=== PATIENT | male | born 1990 | race African-American/Black ===

== ENCOUNTER 2018-03-25 07:31 | Emergency (ER) | payer BC, OTHER ==
[2018-03-25 07:52] VITALS: BP 147/85; PULSE 99; TEMP 98; BMI 20.3
[2018-03-25] MEDS ORDERED: DIPHTH,PERTUSS(ACELL),TET 0.5 ML DISP.SYRIN IM ONE ×2 (09:06→09:34)
--- NOTE | 2018-03-25 09:09 | PDOC ---
History of Present Illness - General Chief Complaint: Injury Stated Complaint: HAND LACERATION Time Seen by Provider: 03/25/18 08:34 History Source: Patient Exam Limitations: No Limitations - History of Present Illness Initial Comments: 03/25/18 09:04 Patient states cut right wrist last night after punching window. States incident occurred approximately 9 hours ago. States wrapped red around wrist and went to sleep. Went to work this morning and noted had continued bleeding therefore came for evaluation. Denies numbness or tingling to fingers, no other injury. Past History - Travel Traveled outside of the country in the last 30 days: No Close contact w/someone who was outside of country & ill: No - Past Medical History Allergies/Adverse Reactions: Allergies Allergy/AdvReac Type Severity Reaction Status Date / Time No Known Allergies Allergy Verified 03/25/18 07:41 Home Medications: Ambulatory Orders NK [No Known Home Medication] 03/25/18 COPD: No - Immunization History Immunization Up to Date: No - Suicide/Smoking/Psychosocial Hx Smoking History: Current every day smoker Number of Cigarettes Smoked Daily: 10 Information on smoking cessation initiated: No Review of Systems - Review of Systems Able to Perform ROS?: Yes Is the patient limited Thai proficient: Yes Constitutional: Yes: Symptoms Reported, See HPI, Malaise Respiratory: No: Symptoms reported Integumentary: Yes: Symptoms Reported Neurological: Yes: Symptoms reported All Other Systems: Reviewed and Negative *Physical Exam - Vital Signs Last Vital Signs Temp Pulse Resp BP Pulse Ox 98 F 99 H 18 147/85 99 03/25/18 07:32 03/25/18 07:32 03/25/18 07:32 03/25/18 07:32 03/25/18 07:32 - Physical Exam General Appearance: Yes: Nourished, Appropriately Dressed, Mild Distress HEENT: positive: WOODY, Normal ENT Inspection, Normal Voice, TMs Normal, Pharynx Normal Neck: negative: Tender Musculoskeletal: positive: Normal Inspection Extremity: positive: Normal Capillary Refill, Normal Range of Motion (strong flexion and extension against resistance to all digits, neurovascular intact including ulnar medial and radial aspect of fingertips.). negative: Normal Inspection Integumentary: positive: Normal Color Neurologic: positive: lobby attendant II-XII NML intact, Fully Oriented, Alert, Normal Mood/ Affect, Normal Response, Motor Strength 5/5 Moderate Sedation - Procedure Monitoring Vital Signs: Procedure Monitoring Vital Signs Temperature 98 F 03/25/18 07:32 Pulse Rate 99 H 03/25/18 07:32 Respiratory Rate 18 03/25/18 07:32 Blood Pressure 147/85 03/25/18 07:32 O2 Sat by Pulse Oximetry (%) 99 03/25/18 07:32 Procedures - Laceration/Wound Repair Right Arm Wound Length: to 2.5 cm Wound Explored: clean Wound's Depth, Shape: into muscle Irrigated w/ Saline: Yes Betadine Prep: Yes Anesthesia: 1% Lidocaine Wound Repaired With: Sutures Suture Size/Type: 4:0 Number of Sutures: 7 (verticle mattress) Deep Layer Suture Size/Type: 4:0 Sterile Dressing Applied: Yes (ortho glass ) Sling Applied: Yes Progress Note - Progress Note Progress Note: right wrist laceration with arterial bleeding , repaired . Splint applied *DC/Admit/Observation/Transfer Diagnosis at time of Disposition: Laceration of wrist Qualifiers: Encounter type: initial encounter Laterality: right Qualified Code(s): S61.511A - Laceration without foreign body of right wrist, initial encounter - Discharge Dispostion Disposition: HOME Condition at time of disposition: Stable Decision to Admit order: No - Referrals - Patient Instructions Printed Discharge Instructions: DI for Laceration Repair Additional Instructions: Rest, elevate, avoid strenuous activity or heavy lifting until sutures are removed Leave dressing on for the next 24 hours, Then may remove dressing gently and wash area with soap and water. Use Splint for 1 week. Reapply bacitracin ointment and dressing daily for the next 5 days On day #6 keep the wound protected and cover as needed until sutures are removed allowing wound to start to dry May use Tylenol or Motrin for pain relief Your Tetanus / Pertussis/ Diptheria Booster updated today Suture removal in :12-14 Days - Apr 05 ask for Ivonne - Post Discharge Activity Forms/Work/School Notes: Back to Work
== END 2018-03-25 09:16 | disposition home or self-care (01) ==
LOC: JER 07:31 → JERFT 07:31
PROC: 0JQG0ZZ Repair Right Lower Arm Subcutaneous Tissue and Fascia, Open Approach (ICD-10-PCS; principal; 2018-03-25)
PROC: 3E0234Z Introduction of Serum, Toxoid and Vaccine into Muscle, Percutaneous Approach (ICD-10-PCS; 2018-03-25)
DX: S61.511A Laceration without foreign body of right wrist, initial encounter (principal); W25.XXXA Contact with sharp glass, initial encounter; Y93.89 Activity, other specified; Y92.89 Other specified places as the place of occurrence of the external cause; Y99.8 Other external cause status
CPT/HCPCS: 12031; 90471; 90715; 99281-25

== ENCOUNTER 2018-11-06 09:24 | Emergency (ER) | payer BC ==
[2018-11-06 09:52] VITALS: BP 122/57; PULSE 78; TEMP 98.3; BMI 19.5
--- NOTE | 2018-11-06 11:46 | PDOC ---
History of Present Illness - General Chief Complaint: Injury Stated Complaint: RT HAND INJURY Time Seen by Provider: 11/06/18 10:51 History Source: Patient Exam Limitations: No Limitations - History of Present Illness Initial Comments: 11/06/18 11:59 28 year old male with no significant medical or surgical history presents with injury to right thumb since yesterday. Patient reports slicing hand while opening a can last night at 9pm. Complaining of pain at site, Tetanus up to date laceration repair this year. Occurred: reports: yesterday Severity: reports: mild Upper Extremity Pain Location: right: thumb Method of Injury: reports: other (cut by a knife) Modifying Factors: improves with: immobilization Extremity Pain Location - Extremity Pain Location Extremity Pain Locations: right: thumb Past History - Travel Traveled outside of the country in the last 30 days: No Close contact w/someone who was outside of country & ill: No - Past Medical History Allergies/Adverse Reactions: Allergies Allergy/AdvReac Type Severity Reaction Status Date / Time No Known Allergies Allergy Verified 11/06/18 09:52 Home Medications: Ambulatory Orders Cephalexin [Keflex] 500 mg PO BID #14 capsule 11/06/18 Ibuprofen 600 mg PO TID #21 tablet 11/06/18 COPD: No - Immunization History Immunization Up to Date: No - Suicide/Smoking/Psychosocial Hx Smoking History: Never smoked Number of Cigarettes Smoked Daily: 10 Information on smoking cessation initiated: No Hx Alcohol Use: No Drug/Substance Use Hx: No Review of Systems - Review of Systems Able to Perform ROS?: Yes Is the patient limited Chinese proficient: No Constitutional: No: Chills, Diaphoresis, Fever HEENTM: No: Double Vision, Nose Congestion, Throat Pain, Throat Swelling Respiratory: No: Cough Cardiac (ROS): No: Chest Pain ABD/GI: No: Abdominal Distended, Nausea, Poor Appetite, Vomiting, Indigestion : No: Burning Musculoskeletal: Yes: Other (+laceration in web of 1st and 2nd digit ). No: Joint Pain, Muscle Pain Integumentary: No: Change in Color, Flushing Neurological: No: Numbness, Tingling Psychiatric: No: Stressors *Physical Exam - Vital Signs Last Vital Signs Temp Pulse Resp BP Pulse Ox 98.3 F 78 18 122/57 L 96 11/06/18 09:51 11/06/18 09:51 11/06/18 09:51 11/06/18 09:51 11/06/18 09:51 - Physical Exam General Appearance: Yes: Nourished, Appropriately Dressed HEENT: positive: TMs Normal, Pharynx Normal Neck: positive: Supple. negative: Lymphadenopathy (R), Lymphadenopathy (L) Respiratory/Chest: positive: Lungs Clear Cardiovascular: positive: Regular Rhythm, Regular Rate Extremity: positive: Normal Inspection, Normal Range of Motion, Other (right hand with laceration in web of 1st and 2nd digit, bleeding) Neurologic: positive: Fully Oriented, Alert, Normal Response Procedures - Laceration/Wound Repair Right Hand 1st digit Wound Length: 2.6 to 5.0 cm Wound Explored: clean Wound's Depth, Shape: irregular Irrigated w/ Saline: Yes Betadine Prep: Yes Anesthesia: 2% Lidocaine Amount of Anesthetic (ccs): 10 Wound Debrided: minimal Wound Repaired With: Sutures Suture Size/Type: 4:0 Number of Sutures: 7 Layer Closure: No Sterile Dressing Applied: Yes Splint Applied: No Sling Applied: No Medical Decision Making - Medical Decision Making 11/06/18 12:05 28 year old male with no significant medical or surgical history presents with injury to right thumb since yesterday. Patient reports slicing hand while opening a can last night at 9pm. laceration of right hand -laceration repair -analgesia -d/c home *DC/Admit/Observation/Transfer Diagnosis at time of Disposition: Laceration of hand Qualifiers: Encounter type: initial encounter Foreign body presence: without foreign body Laterality: right Qualified Code(s): S61.411A - Laceration without foreign body of right hand, initial encounter - Discharge Dispostion Disposition: HOME Condition at time of disposition: Good Decision to Admit order: No - Prescriptions Prescriptions: Cephalexin [Keflex] 500 mg PO BID #14 capsule Ibuprofen 600 mg PO TID #21 tablet - Referrals - Patient Instructions Printed Discharge Instructions: DI for Laceration Repair -- Simple Additional Instructions: Please keep wound dry and with dressing in place for 24 hours Tomorrow you may remove dressing, wash gently with mild soap and water and apply bacitracin may leave open to air REturn to emergency department 11/17 for suture removal Return to emergency department 11/08/18 for wound check if redness, swelling or drainage from wound - Post Discharge Activity Forms/Work/School Notes: Back to Work
[2018-11-06] MEDS ORDERED: IBUPROFEN 600 MG TABLET (FP) PO ONE ×2 (12:09→12:14)
== END 2018-11-06 12:19 | disposition home or self-care (01) ==
LOC: JERFT 09:24
PROC: 0JQJ0ZZ Repair Right Hand Subcutaneous Tissue and Fascia, Open Approach (ICD-10-PCS; principal; 2018-11-06)
DX: S61.411A Laceration without foreign body of right hand, initial encounter (principal); W26.0XXA Contact with knife, initial encounter; Y93.89 Activity, other specified; Y92.038 Other place in apartment as the place of occurrence of the external cause; Y99.8 Other external cause status
CPT/HCPCS: 99281-25